=== PATIENT | male | born 1970 | race Caucasian/White ===

== ENCOUNTER → 2018-07-21 07:11 | Outpatient (CLI) | payer SELFPAY ==
--- NOTE | 2018-07-21 07:17 | CT_ITS ---
STUDY: CT CHEST WITHOUT CONTRAST REASON FOR EXAM: Male, 47 years old. History of pulmonary nodule. RADIATION DOSAGE (If Supplied By Facility): CTDIvol = ( 8.96 ) mGy, DLP = ( 380.57 ) mGycm TECHNIQUE: Transaxial imaging was performed without the administration of intravenous contrast material. Multiplanar coronal and sagittal images were reformatted. Individualized dose optimization techniques were used for this CT. COMPARISON: None. FINDINGS: There is a noncalcified well-defined nodule measuring 3.4 mm in the anterior left apex. This is seen on axial image #14. Correlation with prior examination is recommended for further evaluation. There is no demonstrated pleural abnormality. Normal heart and pericardium. There are multiple small lymph nodes within the mediastinum, which are normal in size and morphology most compatible with reactive lymph hyperplasia. Normal hilar regions. Normal unenhanced pulmonary arteries. Normal aorta arch and descending thoracic aorta. Normal osseous structures. There is no demonstrated abnormality of the visualized upper abdomen. CT/Chest without Contrast IMPRESSION: 3.4 mm well-defined nodule seen in the anterior left apex. Correlation with prior examination is recommended for further evaluation. Electronically Signed: Naga Purdy MD at 15:47 EST Tel [phone], Service support ,
== END ==
PROVIDERS: Family Provider Nurse Practitioner Family; PCP Nurse Practitioner Family; Referring Provider Nurse Practitioner Family; Visit Provider Nurse Practitioner Family
DX: R91.1 Solitary pulmonary nodule (principal)
CPT/HCPCS: 71250

== ENCOUNTER → 2018-11-18 07:47 | Outpatient (CLI) | payer SELFPAY ==
--- NOTE | 2018-11-18 08:08 | MRI_ITS ---
STUDY: MRI RIGHT SHOULDER REASON FOR EXAM: Male, 48 years old. Fell off a horse 1 year ago. Shoulder pain. TECHNIQUE: Standardized fat and water weighted pulse sequences were obtained in all 3 orthogonal planes. COMPARISON: None. FINDINGS: Minimal supraspinatus tendinosis without tear. Normal infraspinatus tendon. Normal subscapularis tendon. Normal teres minor tendon. Normal supraspinatus muscle. Normal infraspinatus muscle. Normal subscapularis muscle. Normal teres minor muscle. Normal glenohumeral articulation. Nonaggressive humeral head cysts. Normal biceps labral complex. Normal intracapsular long biceps tendon. Small superior labral anterior posterior tear (coronal image 14 series 5 and axial images 8 through 11 series 2). Normal capsulo- ligamentous complex. Normal rotator interval. Moderate acromioclavicular arthrosis. No subacromial subdeltoid fluid. Narrowing of the acromiohumeral interval (sagittal images 14 and 15 series 6). Normal visualized coracohumeral and coracoacromial ligaments. Normal quadrilateral space. Normal axillary space. Normal deltoid muscle. Normal trapezius muscle. 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
== END ==
PROVIDERS: Family Provider Nurse Practitioner Family; PCP Nurse Practitioner Family; Referring Provider Nurse Practitioner Family; Visit Provider Nurse Practitioner Family
DX: M25.511 Pain in right shoulder (principal)
CPT/HCPCS: 73221